=== PATIENT | female | born 1950 | race Caucasian/White ===

== ENCOUNTER 2017-06-19 19:12 | Inpatient (IN) | payer MEDICARE, OTHER ==
[~2017-06-19] VITALS: Ht 170.2 cm; Wt 65.0 kg
[2017-06-19] MEDS ORDERED: SODIUM CHLORIDE 0.9% 1,000 ML IV ONE (19:16)
[2017-06-19] MEDS ORDERED: SODIUM CHLORIDE FLUSH 10ML SYR IVF ONE (19:30)
[2017-06-19 19:38] LABS: HEMATOCRIT 45.2 % (34.6-47.8); HEMOGLOBIN 15.2 g/dL (11.7-16.4); WHITE BLOOD COUNT 10.5 x10^3/uL (3.4-10)
[2017-06-19] MEDS ORDERED: ADENOSINE 6 MG/2 ML ONE ×2 (19:46→20:03)
[2017-06-19] MEDS ORDERED: ONDANSETRON 2MG/ML, 2ML ONE ×2 (19:47→23:41)
[2017-06-19 19:48] LABS: BLOOD UREA NITROGEN 16 mg/dL (7-18)
[2017-06-19 19:53] LABS: IS PT STATUS REG ER OR PRE ER? YES
[2017-06-19] MEDS ORDERED: MORPHINE SULFATE 4 MG/ML, 1ML IVPush ONE (20:00)
[2017-06-19] MEDS ORDERED: ONDANSETRON 2MG/ML, 2ML IVPush ONE (20:00)
[2017-06-19] MEDS ORDERED: ADENOSINE 6 MG/2 ML IVPush ONE ×2 (20:00→20:30)
[2017-06-19] MEDS ORDERED: METOPROLOL 1 MG/ML, 5ML ONE ×2 (20:27→21:26)
[2017-06-19] MEDS ORDERED: MAGNESIUM SULFATE PMX 2GM/50ML 50 ML IV ONE (20:30)
[2017-06-19] MEDS ORDERED: morphine SULFATE 10 MG/ML, 1ML ONE (20:58)
[2017-06-19] MEDS: METOPROLOL 1 MG/ML, 5ML IVPush PRN (21:15)
[2017-06-19] MEDS ORDERED: METO50TA82 PO (22:20)
[2017-06-19] MEDS ORDERED: ATOR10TA PO (22:20)
[2017-06-19] MEDS ORDERED: LOSA100T6 PO (22:20)
[2017-06-19] MEDS ORDERED: ASPI-13 PO (22:20)
[2017-06-19] MEDS ORDERED: RANI150C PO (22:20)
[2017-06-19] MEDS ORDERED: LEVO75TA5 PO (22:20)
[2017-06-19] MEDS ORDERED: FAMOTIDINE 20 MG TABLET PO PRN (23:00)
[2017-06-19] MEDS ORDERED: BISACODYL 10 MG SUPP PR PRN (23:00)
[2017-06-19] MEDS ORDERED: POLYETHYLENE GLYCOL 17 GM PACKET PO PRN (23:00)
[2017-06-19] MEDS: ONDANSETRON 2MG/ML, 2ML IVPush PRN (23:57)
[2017-06-20] MEDS ORDERED: NALOXONE 0.4 MG/ML, 1ML IVPush ONE
[2017-06-20] MEDS ORDERED: FENTANYL PF 100 MCG/2ML IVPush PRN
[2017-06-20] MEDS ORDERED: HEPARIN 5,000 UNITS/ML, 1ML ONE ×2 (01:33→10:37)
[2017-06-20] MEDS: SODIUM CHLORIDE 0.9% 1,000 ML IV SCH ×3 (01:40→20:53)
[2017-06-20] MEDS: HEPARIN 5,000 UNITS/ML, 1ML SQ SCH ×3 (01:41→20:53)
[2017-06-20 02:04] LABS: IS PT STATUS REG ER OR PRE ER? YES
[2017-06-20] MEDS ORDERED: NALOXONE 0.4 MG/ML, 1ML ONE (02:48)
[2017-06-20] MEDS ORDERED: PHENYLEPHRINE IV ONE (03:00)
[2017-06-20] MEDS ORDERED: METOPROLOL 1 MG/ML, 5ML ONE (03:22)
[2017-06-20] MEDS ORDERED: ACETAMINOPHEN 325 MG TABLET ONE ×2 (03:22→10:39)
[2017-06-20] MEDS: ACETAMINOPHEN 325 MG TABLET PO PRN ×3 (03:24→19:52)
[2017-06-20] MEDS: METOPROLOL 1 MG/ML, 5ML IVPush PRN (03:25)
[2017-06-20 03:26] LABS: HEMATOCRIT 44.3 % (34.6-47.8); HEMOGLOBIN 14.5 g/dL (11.7-16.4)
[2017-06-20] MEDS: ATORVASTATIN 10 MG TABLET PO SCH ×2 (03:34→20:53)
[2017-06-20 05:48] LABS: HEMATOCRIT 43.1 % (34.6-47.8); HEMOGLOBIN 14.4 g/dL (11.7-16.4); WHITE BLOOD COUNT 13.1 x10^3/uL (3.4-10)
[2017-06-20 05:58] LABS: BLOOD UREA NITROGEN 20 mg/dL (7-18)
[2017-06-20 06:01] LABS: ASPARTATE AMINO TRANSFERASE 49 U/L (15-37)
[2017-06-20 08:17] LABS: IS PT STATUS REG ER OR PRE ER? YES
[2017-06-20] MEDS ORDERED: METOPROLOL TARTRATE 50 MG TABLET PO SCH (09:00)
[2017-06-20] MEDS ORDERED: ASPIRIN 325 MG TABLET EC ONE (10:37)
[2017-06-20] MEDS ORDERED: SENNA/DOCUSATE TABLET ONE ×2 (10:37→10:38)
[2017-06-20] MEDS: SENNA/DOCUSATE TABLET PO SCH (10:48)
[2017-06-20] MEDS: ASPIRIN 325 MG TABLET EC PO SCH (10:48)
[2017-06-20] MEDS ORDERED: SODIUM CHLORIDE 0.9% 1,000 ML IV ONE (10:55)
[2017-06-20] MEDS: LEVOTHYROXINE 75 MCG TABLET PO SCH (11:45)
[2017-06-20 13:50] VITALS: BP 115/72
[2017-06-20 14:36] VITALS: BP 115/72
[2017-06-20] MEDS ORDERED: MAGNESIUM SULFATE PMX 2GM/50ML 50 ML IV ONE (16:00)
[2017-06-20 20:00] VITALS: BP 134/79
[2017-06-21 01:23] VITALS: BP 114/73
[2017-06-21] MEDS: HEPARIN 5,000 UNITS/ML, 1ML SQ SCH ×3 (03:34→19:42)
[2017-06-21] MEDS: SODIUM CHLORIDE 0.9% 1,000 ML IV SCH ×2 (05:00→16:45)
[2017-06-21 05:22] LABS: HEMATOCRIT 38.8 % (34.6-47.8); HEMOGLOBIN 12.8 g/dL (11.7-16.4); WHITE BLOOD COUNT 13.3 x10^3/uL (3.4-10)
[2017-06-21 05:30] LABS: BLOOD UREA NITROGEN 20 mg/dL (7-18)
[2017-06-21] MEDS: METOPROLOL 1 MG/ML, 5ML IVPush PRN (07:44)
[2017-06-21 07:55] VITALS: BP 154/110
[2017-06-21] MEDS: ACETAMINOPHEN 325 MG TABLET PO PRN ×3 (08:11→19:42)
[2017-06-21] MEDS: LEVOTHYROXINE 75 MCG TABLET PO SCH (08:12)
[2017-06-21] MEDS: ASPIRIN 325 MG TABLET EC PO SCH (08:12)
[2017-06-21] MEDS ORDERED: FILTER 0.22 MICRON IV PRN (10:00)
[2017-06-21] MEDS ORDERED: AMIODARONE 900 MG in DEXTROSE 5% 482 ML IV PRN (10:00)
[2017-06-21] MEDS ORDERED: AMIODARONE 150 MG in DEXTROSE 5% 100 ML IV ONE (10:00)
[2017-06-21] MEDS ORDERED: OMNIPAQUE 350 MG/ML, 100ML BOTTLE ONE (12:21)
[2017-06-21] MEDS: ONDANSETRON 2MG/ML, 2ML IVPush PRN ×2 (12:47→19:42)
[2017-06-21 14:20] VITALS: BP 158/82
[2017-06-21 19:10] VITALS: BP 153/87
[2017-06-21] MEDS: SENNA/DOCUSATE TABLET PO SCH (19:42)
[2017-06-21] MEDS: ATORVASTATIN 10 MG TABLET PO SCH (19:42)
[2017-06-22] VITALS (10 sets, daily range): BP systolic 154–192; BP diastolic 80–139
[2017-06-22] MEDS: ACETAMINOPHEN 325 MG TABLET PO PRN ×5 (01:05→20:42)
[2017-06-22] MEDS: HEPARIN 5,000 UNITS/ML, 1ML SQ SCH ×3 (05:04→20:37)
[2017-06-22] MEDS: ONDANSETRON 2MG/ML, 2ML IVPush PRN ×2 (05:08→10:08)
[2017-06-22 05:56] LABS: BLOOD UREA NITROGEN 9 mg/dL (7-18)
[2017-06-22 06:00] LABS: HEMATOCRIT 40.1 % (34.6-47.8); HEMOGLOBIN 13.3 g/dL (11.7-16.4); WHITE BLOOD COUNT 12.6 x10^3/uL (3.4-10)
[2017-06-22] MEDS: SODIUM CHLORIDE 0.9% 1,000 ML IV SCH (07:46)
[2017-06-22] MEDS: ASPIRIN 325 MG TABLET EC PO SCH (08:11)
[2017-06-22] MEDS: SENNA/DOCUSATE TABLET PO SCH (08:12)
[2017-06-22] MEDS: LEVOTHYROXINE 75 MCG TABLET PO SCH (08:12)
[2017-06-22] MEDS: AMIODARONE 200 MG TABLET PO SCH ×2 (09:53→20:36)
[2017-06-22] MEDS: METOPROLOL TARTRATE 25 MG TABLET PO SCH ×2 (09:53→18:21)
[2017-06-22] MEDS ORDERED: MIDAZOLAM 1 MG/ML, 5ML ONE (09:57)
[2017-06-22] MEDS ORDERED: VERAPAMIL 2.5 MG/ML, 2ML ONE (09:57)
[2017-06-22] MEDS ORDERED: TICAGRELOR 90 MG TABLET ONE (09:57)
[2017-06-22] MEDS ORDERED: FENTANYL PF 100 MCG/2ML ONE (09:57)
[2017-06-22] MEDS ORDERED: NITROGLYCERIN 5 MG/ML, 10ML ONE (09:57)
[2017-06-22] MEDS ORDERED: BIVALIRUDIN 250 MG ONE (09:58)
[2017-06-22] MEDS ORDERED: LIDOCAINE 2%, 20ML ONE (09:58)
[2017-06-22] MEDS ORDERED: HEPARIN 1,000 UNITS/ML, 10ML ONE (09:58)
[2017-06-22] MEDS: METOPROLOL 1 MG/ML, 5ML IVPush PRN (10:08)
[2017-06-22] MEDS ORDERED: METO-93 PO (11:55)
[2017-06-22] MEDS ORDERED: ENALAPRILAT 1.25 MG/ML, 2ML ONE (11:57)
[2017-06-22] MEDS ORDERED: ENALAPRILAT 1.25 MG/ML, 2ML IV ONE (12:00)
[2017-06-22] MEDS: LOSARTAN 50MG TABLET PO SCH (12:08)
[2017-06-22] MEDS: ZOLPIDEM 5MG TABLET PO SCH (20:36)
[2017-06-22] MEDS: ATORVASTATIN 10 MG TABLET PO SCH (20:36)
[2017-06-23 03:02] VITALS: BP 142/81
[2017-06-23 05:23] LABS: BLOOD UREA NITROGEN 12 mg/dL (7-18)
[2017-06-23 05:33] LABS: HEMATOCRIT 38.7 % (34.6-47.8); HEMOGLOBIN 13.2 g/dL (11.7-16.4); WHITE BLOOD COUNT 9.9 x10^3/uL (3.4-10)
[2017-06-23] MEDS: LEVOTHYROXINE 75 MCG TABLET PO SCH (05:56)
[2017-06-23] MEDS: METOPROLOL TARTRATE 25 MG TABLET PO SCH ×2 (05:56→17:49)
[2017-06-23] MEDS: HEPARIN 5,000 UNITS/ML, 1ML SQ SCH ×2 (05:56→15:30)
[2017-06-23] MEDS: ACETAMINOPHEN 325 MG TABLET PO PRN ×4 (05:56→22:13)
[2017-06-23 07:43] VITALS: BP 146/79
[2017-06-23] MEDS: SODIUM CHLORIDE 0.9% 1,000 ML IV SCH (08:00)
[2017-06-23] MEDS: ASPIRIN 325 MG TABLET EC PO SCH (09:46)
[2017-06-23] MEDS: SENNA/DOCUSATE TABLET PO SCH (09:46)
[2017-06-23] MEDS: AMIODARONE 200 MG TABLET PO SCH ×2 (09:46→22:13)
[2017-06-23] MEDS: LOSARTAN 50MG TABLET PO SCH (09:46)
[2017-06-23] MEDS ORDERED: POTASSIUM CHLORIDE 20 MEQ TAB.ER.PRT PO ONE (17:30)
[2017-06-23 17:56] VITALS: BP 173/79
[2017-06-23 18:55] VITALS: BP 145/80
[2017-06-23] MEDS: ATORVASTATIN 10 MG TABLET PO SCH (22:13)
[2017-06-23] MEDS: ZOLPIDEM 5MG TABLET PO SCH (22:13)
[2017-06-24] MEDS: SODIUM CHLORIDE 0.9% 1,000 ML IV SCH (02:11)
[2017-06-24 03:18] VITALS: BP 119/72
[2017-06-24] MEDS: ACETAMINOPHEN 325 MG TABLET PO PRN ×3 (03:23→13:42)
[2017-06-24 05:41] LABS: BLOOD UREA NITROGEN 16 mg/dL (7-18)
[2017-06-24] MEDS: LEVOTHYROXINE 75 MCG TABLET PO SCH (06:20)
[2017-06-24] MEDS: HEPARIN 5,000 UNITS/ML, 1ML SQ SCH (06:20)
[2017-06-24] MEDS: METOPROLOL TARTRATE 25 MG TABLET PO SCH (06:20)
[2017-06-24 06:32] VITALS: BP 138/81
[2017-06-24] MEDS: AMIODARONE 200 MG TABLET PO SCH (08:40)
[2017-06-24] MEDS: ASPIRIN 325 MG TABLET EC PO SCH (08:41)
[2017-06-24] MEDS: LOSARTAN 50MG TABLET PO SCH (08:41)
[2017-06-24] MEDS: SENNA/DOCUSATE TABLET PO SCH (08:45)
[2017-06-24] MEDS ORDERED: AMIO200T42 PO (12:48)
[2017-06-24] MEDS ORDERED: METO25TA35 PO (12:48)
[2017-06-24 14:52] VITALS: BP 133/73
[2017-06-24] MEDS ORDERED: AMIODARONE 200 MG TABLET PO SCH (21:00)
== END 2017-06-24 15:20 | disposition home or self-care (01) | DRG 280 ==
LOC: ED 22:34 → EDIP 22:45 → 5SO 06-20 14:08
PROVIDERS: ADMIT Hospitalist; ATTEND Hospitalist
PROC: 5A2204Z Restoration of Cardiac Rhythm, Single (ICD-10-PCS; 2017-06-19)
PROC: 0T9B70Z Drainage of Bladder with Drainage Device, Via Natural or Artificial Opening (ICD-10-PCS; 2017-06-20)
PROC: 4A023N7 Measurement of Cardiac Sampling and Pressure, Left Heart, Percutaneous Approach (ICD-10-PCS; principal; 2017-06-22)
PROC: B2111ZZ Fluoroscopy of Multiple Coronary Arteries using Low Osmolar Contrast (ICD-10-PCS; 2017-06-22)
PROC: B2151ZZ Fluoroscopy of Left Heart using Low Osmolar Contrast (ICD-10-PCS; 2017-06-22)
DX: I47.1 Supraventricular tachycardia (principal); I21.4 Non-ST elevation (NSTEMI) myocardial infarction; E43 Unspecified severe protein-calorie malnutrition; J98.11 Atelectasis; I48.91 Unspecified atrial fibrillation; E03.9 Hypothyroidism, unspecified; E78.5 Hyperlipidemia, unspecified; E83.42 Hypomagnesemia; E87.6 Hypokalemia; I10 Essential (primary) hypertension; I25.10 Atherosclerotic heart disease of native coronary artery without angina pectoris; Z85.3 Personal history of malignant neoplasm of breast; Z87.891 Personal history of nicotine dependence; Z92.3 Personal history of irradiation; Z98.82 Breast implant status; Z68.22 Body mass index [BMI] 22.0-22.9, adult
CPT/HCPCS: 36415; 71010; 71275; 80048; 80053; 81001; 82040; 83735; 84145; 84439; 84443; 84484; 85025; 85610; 93005; 93458; 96361; 96374; 96375; 96376; 99156; C1769; C1894; J0153; J0583; J1644; J2250; J2310; J2405; J3010; J3490; Q9967; J0282; J3475; J7030; J7060